=== PATIENT | female | born 1955 | race Caucasian/White ===

== ENCOUNTER 2018-03-31 16:03 | Outpatient (REF) | payer OTHER, SELFPAY ==
--- NOTE | 2018-03-31 15:40 | PAPFT_PTH ---
PATIENT: Irasema Kurtz LOC: [facility] U#:[id number] AGE/SX: 62/F ROOM: RE03/31/[address]: DANIE Bolaños : 1955 BED: DIS: 03/31/2018 SPEC #: [id number] RECD: 03/31/18 16:48 STATUS: JAILENE REQ #: [id number] CRISTOFER: 03/31/18 15:[address]: Trudi Merino DEPT: [facility] Cytology RECD BY: Michaela Rodgers ENTERED: 03/31/18 16:48 SP TYPE: PAPFT OTHR DR: Braydon He Tissues: 1 - CX/ENDOCX FOR PAP SMEARS Procedures: PAP THIN PREP/UVM Screening HPV DNA PROBE Comments: [id number]
== END 2018-03-31 16:23 ==
LOC: LBN 16:03
PROVIDERS: PCP Internal Medicine; Visit Provider Nurse Practitioner Family
DX: Z12.4 Encounter for screening for malignant neoplasm of cervix (principal); Z11.51 Encounter for screening for human papillomavirus (HPV)
CPT/HCPCS: 88142; 87624

== ENCOUNTER 2019-08-01 01:40 | Outpatient (CLI) | payer OTHER, SELFPAY ==
--- NOTE | 2019-08-01 08:30 | DI.MAMMO_ITS ---
EXAM: MAMMO SCREENING CLINICAL HISTORY: screening TECHNIQUE: Mammograms were interpreted according to the usual protocol including computer analysis w [employer] CAD system, tomosynthesis and C-view imaging. COMPARISON: 2009 through 2015 FINDINGS: The breasts are composed of scattered fibroglandular densities, Breast Density category B. No suspicious masses or suspicious microcalcifications are seen. No skin thickening or abnormal axillary lymph nodes are seen. There has been no significant change from prior exams. IMPRESSION: BIRADS Category 1, negative mammogram. Yearly screening mammography is recommended.
== END 2019-08-01 02:00 ==
PROVIDERS: PCP Family Medicine; Visit Provider Nurse Practitioner Family
DX: Z12.31 Encounter for screening mammogram for malignant neoplasm of breast (principal)
CPT/HCPCS: 77063; 77067

== ENCOUNTER 2019-08-27 09:19 | Emergency (ER) | payer SELFPAY | END 2019-08-27 09:42 | LOC: ER 09:32 | PROVIDERS: PCP Family Medicine | DX: Z53.21 Procedure and treatment not carried out due to patient leaving prior to being seen by health care provider (principal) ==

== ENCOUNTER 2020-06-10 09:46 | Emergency (ER) | payer OTHER, SELFPAY ==
[2020-06-10 09:49] VITALS: BP 158/96; PULSE 78; RESP 17; TEMP 36.7; O2SAT 99
--- NOTE | 2020-06-10 09:55 | ED.GENADUL_ITS ---
Discharge Plan Disposition Patient Disposition: HOME Condition: Stable Discharge Details Clinical Impression: Closed fracture of proximal end of right humerus, Right rib fracture Primary Care Provider: Alma Delia Pérez ED Provider: Fiorella Jennings Home Meds and New Rx's Prescriptions: New oxycodone 5 mg tablet 5 mg PO Q6H PRN (Reason: pain) Qty: 10 RF: 0 Continued ibuprofen 200 MG capsule 200 mg PO DAILY PRN PRNRF: 0 Vitamin C 100 MG tablet 500 mg PO BID RF: 0 vitamin B complex 1 EACH capsule 1 ea PO DAILY RF: 0 Fish Oil 500 MG capsule 1,000 mg PO BID RF: 0 Super Misael-Mag 1 EACH tablet 1 ea PO BID RF: 0 Glucosamine-Chondroitin Complx 1 EACH tablet 1,500 mg PO BID RF: 0 Carditone 1 tab PO BID RF: 0 vitamin E 400 UNIT capsule 400 unit PO DAILY RF: 0 Vitamin B6 1 tab PO DAILY RF: 0 Discharge Instructions Instructions: Arm Fracture in Adults (ED), Rib Fracture (ED) Additional Instructions: Rest, ice, and elevate the affected area as much as possible. Take 500 mg of Tylenol every 4 hours and 600 mg of ibuprofen every 6 hours as needed and directed for pain. Take the oxycodone as needed and directed for pain not relieved with Tylenol or Motrin. Keep your right arm in the sling until follow-up with orthopedics. Call the orthopedics office today to schedule a follow-up appointment for reevaluation. Follow-up with your primary care doctor in 1 week. Return to the emergency department with any worsening or new concerning symptoms. Stand Alone Forms: Work Release Referrals: Eddi June MD [ [facility] STAFF PHYSICIAN] - Discharge Data Discharge Date/Time-TO BE ENTERED AT DEPARTURE: 06/10/20 12:06 Discharge Physician: Fiorella Jennings Medical Decision Making 64-year-old female presents with right upper arm and right lateral rib pain after slip and fall on ice just prior to arrival. She has some pain with range of motion and tenderness to the right humerus and right inferior anterior lateral ribs. There is no deformity, crepitus. Suspect contusion, but also consider fracture. Will obtain a right humerus and rib and chest x-ray. X-rays reviewed and noted proximal comminuted right proximal humerus fracture and a possible right sixth rib fracture. Patient feels comfortable going home. We will send with incentive spirometer. Sling placed. Patient placed on orthopedic follow-up list. We will send with oxycodone for breakthrough pain. Usual and customary return precautions given prior to discharge. Medical Records Medical records reviewed: Yes I reviewed the patient's medical records. Imaging Data Radiologic Study: Radiologist's impression: XR HUMERUS RT CLINICAL HISTORY: s/p fall, r/o acute fx. TECHNIQUE: 2D digital imaging was performed. COMPARISON: No exams were available for comparison FINDINGS: BONES: There is a nondisplaced fracture involving the lateral aspect of the proximal humerus. It appears comminuted. It begins superior to the greater tuberosity and extends inferiorly into the proximal metaphysis. No bony destructive lesion is seen. Visualized portion of elbow and shoulder joints are unremarkable. There is a question of a nondisplaced fracture involving the anterolateral aspect of the right 6th rib. SOFT TISSUE: Normal. IMPRESSION: 1. Nondisplaced comminuted fracture of the proximal right humerus. 2. Question of a nondisplaced fracture involving the anterolateral aspect of the right 6th rib. XR RIBS RT W PA LAT CHEST CLINICAL HISTORY: s/p fall, r/o fx inferior anterolateral ribs TECHNIQUE: 2D digital imaging was performed. COMPARISON: No exams were available for comparison FINDINGS: MEDIASTINUM: Normal. HEART: Normal. PULMONARY VASCULATURE: Normal. LUNGS: Clear. PLEURAL SPACE: No pleural effusion or pneumothorax. BONE:Normal. RIGHT RIBS: No displaced rib fractures identified. However, on the x-ray of the right humerus there appears to be a nondisplaced fracture of the right 6th rib. There is a nondisplaced fracture of the proximal right humerus as described on the x-ray of the humerus. OTHER FINDINGS:Densities are seen in the right upper quadrant of the abdomen suspicious for cholelithiasis. IMPRESSION: 1. No acute pulmonary findings. 2. Nondisplaced proximal right humeral fracture. 3. On the right humeral x-ray series, there is a question of a nondisplaced right 6th rib fracture. HPI General Mode of arrival: ambulatory . Date/Time Provider Initiated Documentation: 06/10/20 09:55 . Limitations to Documentation: no limitations . Information obtained by: patient . HPI Narrative: Patient is a 64-year-old female presents with right upper arm and right rib pain after slip and fall on ice prior to arrival. Patient states she was walking when she slipped on ice landing on her right arm and ribs. She initially did not have any complaints that as time went on she developed pain in her upper arm and right anterior lower ribs. She admits to pain with movement and deep breaths. She denies head injury, headache, LOC, vomiting, neck pain, back pain, difficulty breathing, abdominal pain, neck or back pain. She took 400 mg of ibuprofen prior to arrival. Related Data Home Medications Medication Instructions Recorded Confirmed Carditone 1 tab PO BID 01/03/15 05/09/18 Fish Oil 1,000 mg PO BID 01/03/15 06/10/20 Glucosamine-Chondroitin Complx 1,500 mg PO BID 01/03/15 06/10/20 Super Misael-Mag 1 ea PO BID 01/03/15 06/10/20 Vitamin C 500 mg PO BID 01/03/15 06/10/20 ibuprofen 200 mg PO DAILY PRN PRN 01/03/15 06/10/20 vitamin B complex 1 ea PO DAILY 01/03/15 06/10/20 vitamin E 400 unit PO DAILY 08/05/15 06/10/20 Vitamin B6 1 tab PO DAILY 08/24/16 05/09/18 oxycodone 5 mg PO Q6H PRN #10 tab 06/10/20 Previous Rx's Medication Instructions Recorded oxycodone 5 mg PO Q6H PRN #10 tab 06/10/20 Allergies Allergy/AdvReac Type Severity Reaction Status Date / Time No Known Drug Allergies Allergy Unverified 06/10/20 09:52 General Stated Complaint: Orthopedic KRISTOFER: 4 Review of Systems All systems reviewed & are unremarkable except as noted in HPI and below Constitutional Constitutional: Reports as per HPI, Denies chills and Denies fever(s) Eyes Eyes: Denies blurry vision ENT Ears, Nose, Mouth, and Throat: Denies dizziness, Denies sore throat and Denies throat swelling Cardiovascular Cardiovascular: Denies chest pain and Denies dyspnea Respiratory Respiratory: Denies cough and Denies dyspnea Gastrointestinal Gastrointestinal: Denies abdominal pain, Denies diarrhea and Denies vomiting Genitourinary Genitourinary: Denies hematuria and Denies dysuria Musculoskeletal Musculoskeletal: Denies back pain and Denies numbness Integumentary/Breasts Skin/Breast: Denies lesions and Denies rash Neurologic Neurologic: Denies dizziness, Denies localized weakness and Denies numbness Allergic/Immunologic Allergic/Immunologic: Denies throat swelling [facility] Medical History (Updated 06/10/20 @ 11:48 by Fiorella Jennings DO) Hearing loss of both ears (01/20/15) HTN (hypertension) Osteoarthritis (01/20/15) Family History Mother Heart disease Myocardial infarction at age 75 Father Emphysema of lung Heart disease Myocardial infarction at age 68 Brother No problems noted. Social History (Updated 05/09/18 @ 11:52 by Taylor Nicholas MD) Smoking/Tobacco Use Status: Never Smoking risk assessment performed?: Yes Alcohol Intake: current Alcohol Intake frequency: holidays/special occasions only Drug use: Never Substance use type: does not use Exam Const General: cooperative, healthy appearing and no acute distress HENMT Head: normal to inspection Face and sinus: normal facial exam Eyes General: appearance normal, both eyes and all related structures EOM: EOM intact bilaterally Neck Neck: normal visual inspection and No submandibular swelling Lymphatic: no lymphadenopathy noted Chest Chest: normal inspection of the chest Chest/axillae images: 1. Tenderness to palpation to right anterior and inferior lateral ribs. No crepitus, ecchymosis, edema, erythema or step-off noted. Resp Effort & Inspection: normal respiratory effort and able to speak in complete sentences Auscultation: clear to auscultation bilaterally Cardio Rate: regular rate Rhythm: regular rhythm GI Inspection: normal to inspection Palpation: soft, not firm, not rigid and nontender Auscultation: normal bowel sounds Back/Spine/Pelvis Cervical Spine: cervical ROM normal and No cervical spinal tenderness Thoracic/Lumbar Spine: thoracic and lumbar spine normal to inspection, No thor acic spinal tenderness and No lumbar spinal tenderness Pelvis: no pain with anterior-posterior compression Skin General skin exam: no rashes or lesions noted Neuro General: patient alert, patient awake and patient oriented x3 Cognition: normal cognition Speech: speech normal Motor: muscle tone normal throughout Sensory Exam: no sensory deficits noted Extrem General: normal to inspection, full ROM, capillary refill normal, no calf tenderness bilaterally and no edema Shoulder/upper arm images: 1. Some tenderness to palpation to right proximal humerus. No deformity, ecchymosis, edema, erythema. Some pain with range of motion, specifically abduction. Hand/finger images: 1. 1 to 2 mm superficial abrasion. No edema, ecchymosis, deformity. No pain with palpation or range of motion. Psych Appearance: grossly normal Mental Status: mental status grossly normal Speech and Movement: speech and movement normal Affect: normal affect Course Vital Signs Vital signs: Vital Signs Temperature 98.1 F 06/10/20 09:49 Pulse 78 06/10/20 09:49 Respiratory Rate 17 06/10/20 09:49 Blood Pressure 158/96 H 06/10/20 09:49 Pulse Oximetry 99 06/10/20 09:49 Temperature 98.1 F 06/10/20 09:49 Temperature Source Temporal Artery Scan 06/10/20 09:49 Pulse 78 06/10/20 09:49 Respiratory Rate 17 06/10/20 09:49 Respiratory Effort Non-Labored 06/10/20 09:53 Blood Pressure 158/96 H 06/10/20 09:49 Pulse Oximetry 99 06/10/20 09:49 Oxygen Delivery Method Room Air 06/10/20 09:49 Oxygen Flow Rate 0 06/10/20 09:49 Pain Level 7 06/10/20 09:49 Procedures Orthopedic Splinting/Casting Injury #1: Side: right Upper Extremity Injury Location: upper arm Upper Extremity Immobilizer: sling/shoulder immobilizer
--- OUTSIDE RECORDS SUMMARY | 2020-06-10 10:42 | XMS_ITS ---
:1955 External Reference #:[id number] Author Care Team Providers Name Role Phone Knights Primary Care Provider Unavailable Allergies Code Code System Name Reaction Severity Status Onset NKDA ? Medications Name Status Start Date Stop Date ? ? B Complex Active ? Not available 1 cap/2xday Cardio-VH Active ? Not available Magnesium (as magnesium amino acid aristides ate) 20 mg Potassium (as potassium amino acid chelate) 20 mg Rauwolfia extract 15 mg, 305 mg (Passion flower, hawthorn simpson extract, lemon balm leaf, astragalus root, skullcap herb, eucommia bark extr act, coleus forskohlii extract, garlic, arjuna extract, fo-ti extract, astragalus extract.) 1 cap with carditone evening dose Carditone Active ? Not available Magnesium (as aspartate) 200 mg Proprie tary Blend (Zaida centifolia Boerhaavia diffusa, Coral powder) 350 mg Convolvulus pluricaulis 100 mg Terminalia arjuna 100 mg Tribulus terrestris 100 mg Rauwolfia serpentine 50 mg Zaida vinca 25 mg 1cap Lipotrienols RYR Active ? Not available Red yeast extract, lipotrienol blend 1 cap 2xday magnesium Active ? Not available Mg Taurate 1 at lunch 1 at dinner/bedtime Vitamin B6 100 mg tablet Active ? Not steve ilable Take by oral route. Vitamin D3 Active ? Not available 3000iu/day Problems Name Status Onset Date Source ? Impacted Cerumen Active 08/15/2018 ? Essential Hypertension Active 08/15/2018 ? Dietary Management Surveillance Active 08/15/2018 ? Hyperlipidemia Active 09/12/2018 ? Procedures None recorded. Results Lab Results Date Name Specimen Result Interpretation Description Value Range Status Address ? 08/31/2018 CMP, serum ? Glucose 92 <100 [facility] Serum or mg/dL mg/dL Diagnost ics: Plasma [address] [place] ? ? serum ? Bun 17 7-25 [facility] mg/dL mg/dL Diagnostic s: [address] [place] ? ? serum ? Creatinine 0.83 0.70-1. [facility] mg/dL 20 Diagnostic s: mg/dL [address] [place], [place] ? ? serum ? BUN / 20.5 6.0-21. [facility] Creatinine ratio 0 ratio Diagn ostics: Ratio [address] [place] ? ? serum ? eGFR 88 >60 Final [facility] [place] mL/min/ mL/min/ Diagno stics: 1.73m2 1.73m2 [address] [place] ? ? serum ? eGFR 76 >60 [facility] Non- mL/min/ mL/min/ [facility]: [place] 1.73m2 1.73m2 [address] [place], [place] ? ? serum ? Sodium 140 135-145 [facility] mmol/L mmol/L Diagnostic s: [address] [place] ? ? serum ? Potassium 4.0 3.5-5.1 [facility] mmol/L mmol/L Diagnostic s: [address] [place] ? ? serum ? Chloride 102 98-107 [facility] mmol/L mmol/L Diagnostic s: [address] [place] ? ? serum ? Co2 30 21-31 [facility] mmol/L mmol/L Diagnostic s: [address] [place] ? ? serum ? Anion Gap 8 mEq/L 5-15 [facility] mEq/L Diagnostic s: [address] [place] ? ? serum ? Calcium 9.6 8.6-10. [facility] mg/dL 3 mg/dL Diagnosti cs: [address] [place], [place] ? ? serum ? Total 6.6 6.4-8.9 [facility] Protein g/dL g/dL Diagnosti cs: [address] [place], [place] ? ? serum ? Albumin 4.3 3.5-5.7 [facility] g/dL g/dL Diagnostic s: [address] [place] ? ? serum ? Globulin 2.3 1.9-3.5 [facility] g/dL g/dL Diagnostic s: [address] [place], [place] ? ? serum ? Albumin / 1.9 0.8-2.0 [facility] Globulin ratio ratio Diagnost ics: Ratio [address] [place], [place] ? ? serum ? Tbili 0.5 0.1-1.5 [facility] mg/dL mg/dL Diagnostic s: [address] [place], [place] ? ? serum Low Alk. 41 IU/L 46-118 [facility] Phosphatase IU/L Diagn ostics: [address] [place], [place] ? ? serum ? Ast 17 IU/L 13-39 [facility] IU/L Diagnostic s: [address] [place], [place] ? ? serum ? Alt 11 IU/L 7-52 [facility] IU/L Diagnostic s: [address] [place], [place] 08/31/2018 Lipid serum High Chol 221 <200 [facility] Panel, mg/dL mg/dL Diagnostic s: Serum [address] [place], [place] ? ? serum ? Trig 69 <149 [facility] mg/dL mg/dL Diagnostic s: [address] [place], [place] ? ? serum High Ldl 149.5 <99.0 [facility] mg/dL mg/dL Diagnostic s: [address] [place], [place] ? ? serum ? Hdl 55 >39 [facility] mg/dL mg/dL Diagnostic s: [address] [place], [place] ? ? serum ? LDL/HDL 2.7 ? [facility] ratio Diagnostic s: [address] [place], [place] ? ? serum ? Trig/hdl 1.3 <2.0 [facility] ratio ratio Diagnostic s: [address] [place], [place] ? ? serum ? Chol/hdl 4.0 ? [facility] ratio Diagnostic s: [address], [place] ? ? serum ? Vldl 13.8 <30.0 [facility] mg/dL mg/dL Diagnostic s: [address], [place] 08/31/2018 Magnesium RBCs ? Magnesium, 2.0 1.5-3.1 Angelique [facility] , RBC RBCs mmol/L mmol/L Diagnostic s: [address], [place] Past Encounters 08/22/2019 Essential Hypertension; Hyperlipidemia; Vitamin D Deficiency Araceli Ca, [place]: [address] [facility], [place] [address], Ph. [phone] 05/16/2019 Essential Hypertension; Dietary Managevt nt Surveillance; Hyperlipidemia Araceli Ca, [place]: [address] [place] [address], Ph. [phone] 02/06/2019 Hyperlipidemia; Essential Hypertension; Vitamin D Deficiency; Dietary Management Surveillance Araceli Ca, [place]: [address] [place] [address], Ph. [phone] Social History Tobacco Smoking Status Never Smoker Vaccine List None recorded. Plan of Care Patient Instructions 1. Eat more green leafy- veggies- 2. Maybe smoothies add spinach- 3. Lipid draw and CMp 4. Vit D levels- ? you were 37 in [facility] 2018- retest to see what level you are coming out of winter Let me know where to send Lab orders 1. Vitamin D emulsified either drop or caps 3000iu /day 2. lipotrienol ryrs 1 cap 2xday 3, Carditone 2/day 4. Cardio-vh 2/day 5. Continue with B complex you have and bring in next time 1 cap /day? 6. Ubiquinol Coq10 1 cap 2xday 100mg 2xd ay ?you are taking another? 7. Continue to monitor BP with Diet and bring supplements in brown bag next visit 1. Eat more grains and greens- 2. pick 2-3 days that are plant based pr otein with lots of greens 3. contine with lipotrienols unless bloo d work says otherwise 4. For 1 week add extra cardio vh at [facility] ht- 2 cardio vh and 1 carditione at night report BP 5. Make appt to return in 3 months- get bloodwork for lipid, hepatic, week prior to appt Reminders Provider Appointments None recorded. ? ? Lab None recorded. ? ? Referral None recorded. ? ? Procedures None recorded. ? ? Surgeries None recorded. ? ? Imaging None recorded. ? ? Vitals 08/22/2019 12:15PM ESTABLISHED PATIENT 47 Weight Blood Pressure 123 lbs 16 oz (1) 152/92 mm[Hg] (2) 161/86 mm[Hg] 05/16/2019 11:30AM ESTABLISHED PATIENT 47 Weight Blood Pressure 126 lbs 140/86 mm[Hg] 02/06/2019 08:00AM ESTABLISHED PATIENT 47 Weight Blood Pressure 127 lbs 16 oz 138/82 mm[Hg] 11/14/2018 08:45AM ESTABLISHED PATIENT 47 Weight Blood Pressure 134 lbs 6.4 oz 140/80 mm[Hg] 10/17/2018 08:45AM ESTABLISHED PATIENT 30 Weight Blood Pressure 135 lbs 6.4 oz 136/90 mm[Hg] 09/21/2018 08:45AM ESTABLISHED PATIENT 30 Blood Pressure 156/94 mm[Hg] 09/07/2018 08:30AM NEW PATIENT 30 Blood Pressure 150/86 mm[Hg] 08/15/2018 08:00AM ESTABLISHED PATIENT 47 Weight Blood Pressure 139 lbs 16 oz 150/96 mm[Hg] 11/17/2016 01:00PM ESTABLISHED PATIENT 30 Height Weight BMI Blood Pressure 5 ft 2 in 143 lbs 16 oz 26.3 kg/m2 140/80 mm[Hg] 11/04/2016 12:30PM ESTABLISHED PATIENT 30 Height Blood Pressure 5 ft 2 in 150/90 mm[Hg] 10/20/2016 09:00AM NEW PATIENT 90 Height Weight BMI Blood Pressure 5 ft 2 in 144 lbs 16 oz 26.5 kg/m2 (1) 150/90 mm[H g] (2) 152/96 mm[Hg ]
--- NOTE | 2020-06-10 11:09 | DI.RAD_ITS ---
EXAM: XR HUMERUS RT CLINICAL HISTORY: s/p fall, r/o acute fx. TECHNIQUE: 2D digital imaging was performed. COMPARISON: No exams were available for comparison FINDINGS: BONES: There is a nondisplaced fracture involving the lateral aspect of the proximal humerus. It dory ears comminuted. It begins superior to the greater tuberosity and extends inferiorly into the proxim al metaphysis. No bony destructive lesion is seen. Visualized portion of elbow and shoulder joints a re unremarkable. There is a question of a nondisplaced fracture involving the anterolateral aspect o f the right 6th rib. SOFT TISSUE: Normal. IMPRESSION: 1. Nondisplaced comminuted fracture of the proximal right humerus. 2. Question of a nondisplaced fracture involving the anterolateral aspect of the right 6th rib. DATA REPOSITORY: RADIATION DOSE DELIVERED:
--- NOTE | 2020-06-10 11:10 | DI.RAD_ITS ---
EXAM: XR RIBS RT W PA LAT CHEST CLINICAL HISTORY: s/p fall, r/o fx inferior anterolateral ribs TECHNIQUE: 2D digital imaging was performed. COMPARISON: No exams were available for comparison FINDINGS: MEDIASTINUM: Normal. HEART: Normal. PULMONARY VASCULATURE: Normal. LUNGS: Clear. PLEURAL SPACE: No pleural effusion or pneumothorax. BONE:Normal. RIGHT RIBS: No displaced rib fractures identified. However, on the x-ray of the right humerus there appears to be a nondisplaced fracture of the right 6th rib. There is a nondisplaced fracture of the proximal right humerus as described on the x-ray of the humerus. OTHER FINDINGS:Densities are seen in the right upper quadrant of the abdomen suspicious for cholelith iasis. IMPRESSION: 1. No acute pulmonary findings. 2. Nondisplaced proximal right humeral fracture. 3. On the right humeral x-ray series, there is a question of a nondisplaced right 6th rib fracture. DATA REPOSITORY: RADIATION DOSE DELIVERED:
== END 2020-06-10 12:06 | disposition home or self-care (01) ==
PROVIDERS: Emergency Provider Physician Assistant; PCP Family Medicine
DX: S22.31XA Fracture of one rib, right side, initial encounter for closed fracture (principal); S42.294A Other nondisplaced fracture of upper end of right humerus, initial encounter for closed fracture; W00.0XXA Fall on same level due to ice and snow, initial encounter; Y99.0 Civilian activity done for income or pay; I10 Essential (primary) hypertension
CPT/HCPCS: 23600; 99281; 71046; 71100; 73060

== ENCOUNTER 2020-06-25 09:11 | Outpatient (CLI) | payer OTHER, SELFPAY ==
--- NOTE | 2020-06-25 09:00 | DI.RAD_ITS ---
EXAM: XR SHOULDER RT COMPLETE 2+V CLINICAL HISTORY: R prox humerus fx. TECHNIQUE: 2D digital imaging was performed. COMPARISON: CR XR HUMERUS RT from 06/10/2020 FINDINGS: BONES: No change in the alignment of the proximal right humeral fracture. No new fracture or disloca tion. No bony destructive lesion is seen. JOINTS: Degenerative changes of the acromioclavicular joint. SOFT TISSUE: Normal. IMPRESSION: Stable proximal right humeral fracture. DATA REPOSITORY: RADIATION DOSE DELIVERED:
== END 2020-06-25 09:31 ==
PROVIDERS: PCP Family Medicine; Visit Provider Physician Assistant
DX: S42.291A Other displaced fracture of upper end of right humerus, initial encounter for closed fracture (principal); M19.011 Primary osteoarthritis, right shoulder
CPT/HCPCS: 73030

== ENCOUNTER 2020-07-24 13:36 | Outpatient (CLI) | payer OTHER, SELFPAY ==
--- NOTE | 2020-07-24 11:45 | DI.RAD_ITS ---
EXAM: XR SHOULDER RT COMPLETE 2+V CLINICAL HISTORY: right proximal humerus fracture. TECHNIQUE: 2D digital imaging was performed. COMPARISON: CR XR SHOULDER RT COMPLETE 2+V from 06/25/2020 FINDINGS: There is continued stable appearance of the humeral head-neck fracture which also involves the greate r tuberosity. Fracture lines are still evident. No further displacement. Subacromial space is not diminished. Glenohumeral joint is not dislocated. IMPRESSION: Continued stable appearance on this two view study. DATA REPOSITORY: RADIATION DOSE DELIVERED:
== END 2020-07-24 13:37 | disposition home or self-care (01) ==
LOC: DIORS 13:37
PROVIDERS: PCP Family Medicine; Referring Provider Family Medicine; Visit Provider Physician Assistant
DX: S42.294D Other nondisplaced fracture of upper end of right humerus, subsequent encounter for fracture with routine healing (principal)
CPT/HCPCS: 73030

== ENCOUNTER 2020-09-04 11:05 | Outpatient (CLI) | payer OTHER, SELFPAY ==
--- NOTE | 2020-09-04 10:45 | DI.RAD_ITS ---
EXAM: XR SHOULDER RT COMPLETE 2+V CLINICAL HISTORY: F/U FRACTURE. TECHNIQUE: 2D digital imaging was performed. COMPARISON: CR XR SHOULDER RT COMPLETE 2+V from 07/24/2020 FINDINGS: There has been some healing at the fracture site. No significant displacement. No calcifications in the subacromial space. Glenohumeral joint appears unremarkable. IMPRESSION: DATA REPOSITORY: RADIATION DOSE DELIVERED:
== END 2020-09-04 11:06 | disposition home or self-care (01) ==
LOC: DIORS 11:49
PROVIDERS: PCP Family Medicine; Referring Provider Family Medicine; Visit Provider Student in an Organized Health Care Education/Training Program
DX: S42.291D Other displaced fracture of upper end of right humerus, subsequent encounter for fracture with routine healing (principal)
CPT/HCPCS: 73030

== ENCOUNTER 2020-09-30 15:33 | Outpatient (REF) | payer OTHER, SELFPAY ==
--- NOTE | 2020-09-30 15:00 | PAPFT_PTH ---
PATIENT: Irasema Kurtz LOC: [facility] U#:[id number] AGE/SX: 64/F ROOM: RE09/30/[address]: DANIE Bolaños : 1955 BED: DIS: 09/30/2020 SPEC #: [id number] RECD: 09/30/20 18:00 STATUS: JAILENE REQ #: [id number] CRISTOFER: 09/30/20 15:[address]: Trudi Merino DEPT: [facility] Cytology RECD BY: Michaela Rodgers ENTERED: 09/30/20 18:00 SP TYPE: PAPFT OTHR DR: Alma Delia Pérez Tissues: 1 - CX/ENDOCX FOR PAP SMEARS Procedures: PAP THIN PREP/UVM Screening Comments: [id number] (UNSATISFACTORY FOR EVALUATION)
== END 2020-09-30 15:34 | disposition home or self-care (01) ==
LOC: LBN 15:33
PROVIDERS: PCP Family Medicine; Visit Provider Nurse Practitioner Family
DX: Z12.4 Encounter for screening for malignant neoplasm of cervix (principal); R87.615 Unsatisfactory cytologic smear of cervix
CPT/HCPCS: 88142

== ENCOUNTER 2021-03-04 03:36 | Outpatient (CLI) | payer OTHER, SELFPAY ==
[2021-03-04 09:56] LABS: ALT 34 U/L (14-59); AST 20 U/L (15-37); Albumin 4.3 g/dL (3.4-5.0); Alkaline Phosphatase 52 U/L (46-116); Anion Gap 9.1 mmol/L (3-11); BUN 14 mg/dL (7-18); Bilirubin, Total 0.6 mg/dL (0.2-1.0); CO2 28.9 mmol/L (21.0-32.0); CREATININE 0.8 mg/dL (0.55-1.02); Calcium 9.3 mg/dL (8.5-10.1); Calculated LDL 146 mg/dL (<100); Chloride 106 mmol/L (98-107); Cholesterol 233 mg/dL (<200); Glucose 98 mg/dL (74-106); HDL Cholesterol 77 mg/dL (40-60); Lipase 121 U/L (73-393); Sodium 144 mmol/L (136-145); Total Protein 7.4 g/dL (6.4-8.2); Triglyceride 52 mg/dL (<150)
[2021-03-04 10:21] LABS: Amylase 67 U/L (25-115)
[2021-03-05 00:51] LABS: Vitamin D 25 Total 27.7 ng/mL (30-100)
== END 2021-03-04 03:37 | disposition home or self-care (01) ==
LOC: LBO 03:36
PROVIDERS: PCP Family Medicine; Visit Provider Naturopath
DX: R10.13 Epigastric pain (principal); E78.5 Hyperlipidemia, unspecified; E55.9 Vitamin D deficiency, unspecified
CPT/HCPCS: 36415; 80053; 80061; 82306; 83690; 82150

== ENCOUNTER 2021-07-07 00:18 | Outpatient (CLI) | payer OTHER, SELFPAY ==
--- NOTE | 2021-07-07 07:30 | DI.US_ITS ---
Exam(s) US AXILLA LT EXAM: US AXILLA LT CLINICAL HISTORY: Previous US neg,LT AXILLARY SWELLING,M79.89 TECHNIQUE: Ultrasound left axilla performed using standard protocol. COMPARISON: No exams were available for comparison FINDINGS: Targeted area of the left axilla was evaluated sonographically. No solid or cystic masses, hypoechoi c foci, areas of abnormal shadowing, or areas of skin thickening. IMPRESSION: No cystic or solid mass is seen sonographically in the left axillary area of palpable concern. DATA REPOSITORY:
--- NOTE | 2021-07-07 10:30 | DI.MAMMO_ITS ---
Exam(s) MAMMO SCREENING EXAM: MAMMO SCREENING CLINICAL HISTORY: screening,Z12.39 TECHNIQUE: Bilateral full field digital CC and MLO mammographic images were obtained with 3D tomosyn thesis and utilizing computer aided detection (CAD). COMPARISON: Available for comparison. FINDINGS: Masses/Architectural Distortion: None seen. Microcalcifications: No suspicious pleomorphic-type are seen. Skin Thickening/Nipple Retraction: None. IMPRESSION: 1. No significant interval change with no specific features of malignancy noted. 2. Unless there is more urgent need, screening mammography is recommended, as per [employer] guidelines. BI-RADS Category 1 - Negative Breast Density - Category B - Scattered areas of fibroglandular density Breast density category C or D implies that the patient has dense breast tissue. Dense breast tissue is very common and is not abnormal but dense breast tissue can make it harder to find cancer on a ma mmogram. Also, dense breast tissue may increase their breast cancer risk. This information about the result of the mammogram report was provided to the patient to raise their awareness. Use this report when you speak with the patient about their risks for breast cancer, which includes their family hist ory. At that time, you may recommend for more screening tests (Ultrasound or MRI) as they might be us eful based on their risk. A negative radiographic report should not delay biopsy if a dominant or clinically suspicious mass is present. Up to ten percent of cancers are not identified on mammography. A negative report may reinforce clinical impression. Adenosis and dense breasts may obscure an underlying neoplasm. False positive reports average 6 to 10%. Patient will receive a letter notifying them of these results.
== END 2021-07-07 00:38 ==
PROVIDERS: PCP Family Medicine; Visit Provider Surgery
DX: Z12.31 Encounter for screening mammogram for malignant neoplasm of breast (principal); M79.89 Other specified soft tissue disorders
CPT/HCPCS: 76642; 77063; 77067

== ENCOUNTER 2021-11-10 15:46 | Outpatient (REF) | payer OTHER, SELFPAY ==
--- NOTE | 2021-11-10 15:00 | PAPFT_PTH ---
PATIENT: Irasema Kurtz LOC: [facility] U#:[id number] AGE/SX: 66/F ROOM: RE11/10/[address]: DANIE Bolaños : 1955 BED: DIS: 11/10/2021 SPEC #: [id number] RECD: 11/10/21 18:06 STATUS: CHRISTOJohn REQ #: [id number] CRISTOFER: 11/10/21 15:[address]: Trudi Merino DEPT: [facility] Cytology RECD BY: Michaela Rodgers ENTERED: 11/10/21 18:07 SP TYPE: PAPFT OTHR DR: Alma Delia Pérez Tissues: 1 - CX/ENDOCX FOR PAP SMEARS Procedures: PAP THIN PREP/UVM Screening HPV DNA PROBE Comments: [id number]
== END 2021-11-10 15:47 | disposition home or self-care (01) ==
LOC: LBN 15:46
PROVIDERS: PCP Family Medicine; Visit Provider Nurse Practitioner Family
DX: Z12.4 Encounter for screening for malignant neoplasm of cervix (principal); Z11.51 Encounter for screening for human papillomavirus (HPV)
CPT/HCPCS: 88142; 87624

== ENCOUNTER 2022-10-20 13:29 | Emergency (ER) | payer OTHER, SELFPAY ==
[2022-10-20 13:34] VITALS: BP 151/90; PULSE 79; RESP 18; TEMP 36.6; O2SAT 97
--- NOTE | 2022-10-20 13:45 | ED.GENADUL_ITS ---
Discharge Plan Disposition Patient Disposition: Home Condition: Stable Discharge Details Clinical Impression: Fall, Wrist sprain Primary Care Provider: Alma Delia Pérez ED Provider: Enid Grant Home Meds and New Rx's Prescriptions: Continued benzonatate 100 mg capsule 100 mg PO TID PRN (Reason: cough) Qty: 14 0RF Patient Comments: not taking ibuprofen 200 MG capsule 200 mg PO DAILY PRN PRN Vitamin C 100 MG tablet 500 mg PO BID Patient Comments: 01/20/15- reports takes 500mg BID. NC vitamin B complex 1 EACH capsule 1 ea PO DAILY Fish Oil 500 MG capsule 1,000 mg PO BID Patient Comments: 01/20/15- states she is taking 1000mg/ BID Super Misael-Mag 1 EACH tablet 1 ea PO BID Glucosamine-Chondroitin Complx 1 EACH tablet 1,500 mg PO BID Patient Comments: 01/20/15-reports she takes 1,500mg BID. NC Carditone 1 tab PO BID Patient Comments: not taking vitamin E 400 UNIT capsule 400 unit PO DAILY Vitamin B6 1 tab PO DAILY Discharge Instructions Instructions: Fall Prevention (ED), Wrist Sprain (ED) Additional Instructions: No evidence of broken bones noted on the x-rays of her wrists. Do suspect sprain. Please keep the Rodo wrap's on as needed for comfort. Rest ice compression elevation. Please take Tylenol or Ibuprofen with food every 4-6 hours as needed for pain and swelling. Follow up with primary care provider in 3-5 days. Return to ED sooner if any worsening or concerns. Increase oral fluids. Referrals: Alma Delia Pérez [Primary Care Provider] - 1 week Medical Decision Making 66-year-old female presents to the ER status post mechanical fall which she jumped out of a truck. She landed onto her left side and bilateral outstretched arms to her hands. She is complaining of bilateral wrist pain. Denies hitting her head no loss of consciousness no neck or back pain. She did take 2 Advil prior to arrival. No other injuries or complaints at this time. She does have a past medical history of hypertension osteoarthritis. X-rays of wrist are unremarkable. Will order Rodo bandages and instructed on RICE procedures. Given Rodo wrap's bilaterally. This text was generated using [employer] system, please disregard any oddities of phrase or misspellings. HPI General Mode of arrival: ambulatory . Date/Time Provider Initiated Documentation: 10/20/22 13:40 . Limitations to Documentation: no limitations . Information obtained by: patient, family, RN notes reviewed and old records reviewed . HPI Narrative: 66-year-old female presents to the ER status post mechanical fall which she jumped out of a truck. She landed onto her left side and bilateral outstretched arms to her hands. She is complaining of bilateral wrist pain. Denies hitting her head no loss of consciousness no neck or back pain. She did take 2 Advil prior to arrival. No other injuries or complaints at this time. She does have a past medical history of hypertension osteoarthritis. Related Data Home Medications Medication Instructions Recorded Confirmed Carditone 1 tab PO BID 01/03/15 09/13/22 ascorbic acid (vitamin C) 100 mg 500 mg PO BID 01/03/15 10/20/22 tablet (Vitamin C) calcium carbonate-magnesium oxide 1 ea PO BID 01/03/15 10/20/22 333 mg-167 mg tablet (Super Misael-Mag) glucosamine 750 [id number]-[id number]-[id number] 1 1,500 mg PO BID 01/03/15 10/20/22 625 mg-D3 1,000 ylhd-Y-alh-Bosw tablet (Glucosamine-Chondroitin Complex) ibuprofen 200 mg capsule 200 mg PO DAILY PRN PRN 01/03/15 10/20/22 omega-3 fatty acids 500 mg capsule 1,000 mg PO BID 01/03/15 10/20/22 (Fish Oil) vitamin B complex 1 ea PO DAILY 01/03/15 10/20/22 vitamin E 268 mg (400 unit) capsule 400 unit PO DAILY 08/05/15 10/20/22 Vitamin B6 1 tab PO DAILY 08/24/16 10/20/22 benzonatate 100 mg capsule 100 mg PO TID PRN cough #14 caps 09/07/22 09/07/22 Previous Rx's Medication Instructions Recorded benzonatate 100 mg capsule 100 mg PO TID PRN cough #14 caps 09/07/22 Allergies Allergy/AdvReac Type Severity Reaction Status Date / Time No Known Drug Allergies Allergy Unverified 10/20/22 13:35 General Stated Complaint: Orthopedic KRISTOFER: 4 Review of Systems All systems reviewed & are unremarkable except as noted in HPI and below Musculoskeletal Musculoskeletal: Reports as per HPI and Reports arthralgias PFSH All Active Problems (Updated 10/20/22 @ 14:33 by Enid Grant NP) Fall (Acute) Wrist sprain (Acute) Closed fracture of proximal end of right humerus (Acute) Osteoarthritis (Acute 01/20/15) Hearing loss of both ears (Acute 01/20/15) HTN (hypertension) (Acute 01/20/15) Medical History (Updated 10/20/22 @ 14:33 by Enid Grant NP) HTN (hypertension) Family History Mother Heart disease Myocardial infarction at age 75 Father Emphysema of lung Heart disease Myocardial infarction at age 68 Brother No problems noted. Social History Smoking/Tobacco Use Status: Never Smoking risk assessment performed?: Yes Alcohol Intake: never Drug use: Never Substance use type: does not use Current gender identity: female Exam Narrative Exam Narrative: General: Well Developed, Awake and Alert, conversant. Skin: Warm and Dry HEENT: Head: No palpable deformities, Normocephalic Eyes: Pupils PERRLA, EOM's intact. No periorbital eccymosis or step off Ears: Canal patent. Tympanic membranes are clear . No nguyen's sign, no hemptympanum. Nose/Face: Atraumatic. Facial bones nontender to palpation and stable with manipulation. Mouth/Throat: No intraoral trauma. Teeth and mandible are intact. Neck: No midline tenderness, no step off, no deformity to palpation of C-spine. Trachea midline. Chest: No surface trauma. Nontender without crepitus or deformity. Lungs clear to ausculatation bilaterally. Heart: RRR, no rubs, murmurs or gallop. Abdomen: No abrasions, ecchymosis, or surface trauma. Nondistended. Nontender to palpation no guarding, rebound, or rigidity. Pelvis: Nontender to palpation and stable to compression. Femoral pulses strong and equal Extremities: no surface trauma. Sensation intact. Peripheral pulses intact and equal. Neuro: ANO x4, GCS 15, cranial nerves II through XII intact. Motor and sensory exam nonfocal. Reflexes are symmetric. Course Vital Signs Vital signs: Vital Signs Temperature 36.6 C 10/20/22 13:34 Pulse 79 10/20/22 13:34 Respiratory Rate 18 10/20/22 13:34 Blood Pressure 151/90 H 10/20/22 13:34 Pulse Oximetry 97 10/20/22 13:34 Temperature 36.6 C 10/20/22 13:34 Temperature Source Temporal Artery Scan 10/20/22 13:34 Pulse 79 10/20/22 13:34 Respiratory Rate 18 10/20/22 13:34 Respiratory Effort Normal, Non-Labored 10/20/22 13:35 Blood Pressure 151/90 H 10/20/22 13:34 Pulse Oximetry 97 10/20/22 13:34 Oxygen Delivery Method Room Air 10/20/22 13:34 Oxygen Flow Rate 0 10/20/22 13:34
--- NOTE | 2022-10-20 14:04 | DI.RAD_ITS ---
Exam(s) XR WRIST LT COMPLETE EXAM: XR WRIST LT COMPLETE CLINICAL HISTORY: Fall. TECHNIQUE: 2D digital imaging was performed. Three views. COMPARISON: No exams were available for comparison FINDINGS: BONES: No acute fracture is present. No bony destructive lesion is seen. JOINTS: The carpal bones are normally aligned. SOFT TISSUE: Normal. IMPRESSION: Unremarkable radiographs of the left wrist. DATA REPOSITORY: RADIATION DOSE DELIVERED:
--- NOTE | 2022-10-20 14:05 | DI.RAD_ITS ---
Exam(s) XR WRIST RT COMPLETE EXAM: XR WRIST RT COMPLETE CLINICAL HISTORY: Fall. TECHNIQUE: 2D digital imaging was performed. Three views. COMPARISON: CR XR WRIST LT COMPLETE from 10/20/2022 FINDINGS: BONES: No acute fracture is present. No bony destructive lesion is seen. JOINTS: The carpal bones are normally aligned. SOFT TISSUE: Normal. IMPRESSION: Unremarkable radiographs of the right wrist. DATA REPOSITORY: RADIATION DOSE DELIVERED:
[2022-10-20 14:55] VITALS: PULSE 80; RESP 18; O2SAT 98
== END 2022-10-20 14:56 | disposition home or self-care (01) ==
PROVIDERS: Emergency Provider Registered Nurse Emergency; PCP Family Medicine
DX: S63.502A Unspecified sprain of left wrist, initial encounter (principal); V89.9XXA Person injured in unspecified vehicle accident, initial encounter; S63.501A Unspecified sprain of right wrist, initial encounter
CPT/HCPCS: 99283; 73110

== ENCOUNTER 2023-03-25 02:17 | Outpatient (CLI) | payer MEDICARE, SELFPAY ==
[2023-03-25 07:33] LABS: Abs Immature Grans 0.01 10^3/uL (0.0-0.06); Absolute Basophil Count 0.04 10^3/uL (0.0-0.2); Absolute Eosinophil Count 0.12 10^3/uL (0.0-0.7); Absolute Lymphocyte Count 1.14 10^3/uL (1.2-3.4); Absolute Monocyte Count 0.33 10^3/uL (0.1-0.8); Absolute Neutrophil Count 2.36 10^3/uL (1.2-6.7); HCT 41.6 % (36.0-46.0); HGB 14.1 g/dL (11.2-15.7); Immature Grans % 0.3; Lymphocytes % 28.5; MCH 30.9 pg (27.0-33.0); MCHC 33.9 % (32.0-36.0); MCV 91 fL (80-95); MPV 9.1 fL (8.0-11.0); Monocytes % 8.3; Neutrophils % 58.9; Platelet Count 235 10^3/uL (130-400); RBC 4.57 10^6/uL (3.93-5.22)
[2023-03-25 08:02] LABS: ALT 24 U/L (14-59); AST 19 U/L (15-37); Alkaline Phosphatase 47 U/L (46-116); Anion Gap 8.5 mmol/L (3-11); BUN 10 mg/dL (7-18); Bilirubin, Total 0.6 mg/dL (0.2-1.0); CO2 29.5 mmol/L (21.0-32.0); CREATININE 0.8 mg/dL (0.55-1.02); Calcium 9.6 mg/dL (8.5-10.1); Calculated LDL 145 mg/dL (<100); Chloride 106 mmol/L (98-107); Cholesterol 226 mg/dL (<200); Estimated GFR 81.72 (mL/min/1.73m2); Glucose 108 mg/dL (74-106); HDL Cholesterol 65 mg/dL (40-60); Potassium 3.7 mmol/L (3.5-5.1); Sodium 144 mmol/L (136-145); Total Protein 7.5 g/dL (6.4-8.2); Triglyceride 82 mg/dL (<150)
[2023-03-25 08:30] LABS: Hemoglobin A1C 5.1 % (<5.7)
[2023-03-28 15:57] LABS: Apolipoprotein A1, S 164 mg/dL (>=140); Apolipoprotein B, S 107 mg/dL (See Comment); Apolipoprotein B/A 1 ratio 0.7 (See Comment)
== END 2023-03-25 02:18 | disposition home or self-care (01) ==
PROVIDERS: PCP Family Medicine; Visit Provider Naturopath
DX: E78.5 Hyperlipidemia, unspecified (principal); E55.9 Vitamin D deficiency, unspecified
CPT/HCPCS: 36415; 80053; 80061; 82172; 82306; 83036; 85025

== ENCOUNTER 2023-05-06 10:39 | Emergency (ER) | payer MEDICARE, SELFPAY ==
[2023-05-06] VITALS (13 sets, daily range): BP systolic 139–187; BP diastolic 85–98; PULSE 74–91; RESP 13–24; O2SAT 96–100
--- NOTE | 2023-05-06 10:30 | RT.EKG_ITS ---
APPROVED REPORT Exam: Resting ECG Reason for Exam: Dyspnea Patient Location: E HR:85 bpm ECG Measurements Heart Rate 85 AXIS SC 134 P 42 QRSd 95 QRS -19 QT 391 T 92 QTc 465 Conclusion Sinus rhythm normal axis LVH
--- NOTE | 2023-05-06 10:45 | DI.RAD_ITS ---
Exam(s) XR CHEST 2V PA LATERAL EXAM: XR CHEST 2V PA LATERAL CLINICAL HISTORY: SOB TECHNIQUE: 2D digital imaging was performed of the chest. Two images were obtained. PA and lateral views were obtained. COMPARISON: CR XR RIBS RT W PA LAT CHEST from 06/10/2020 FINDINGS: MEDIASTINUM: Normal. HEART: Normal. PULMONARY VASCULATURE: Normal. LUNGS: Clear. PLEURAL SPACE: No pleural effusion or pneumothorax. BONE:Within normal limits for the patient's age. OTHER FINDINGS:Normal. IMPRESSION: No acute pulmonary findings. DATA REPOSITORY: RADIATION DOSE DELIVERED:
--- NOTE | 2023-05-06 11:06 | W.ED.GENAD ---
Discharge Plan Disposition Patient Disposition: Home Condition: Good Discharge Details Clinical Impression: Heart palpitations Primary Care Provider: Alma Delia Pérez ED Provider: Virgil Foley Home Meds and New Rx's Prescriptions: No Action ibuprofen 200 MG capsule 200 mg PO DAILY PRN PRN Vitamin C 100 MG tablet 500 mg PO BID Patient Comments: 01/20/15- reports takes 500mg BID. NC vitamin B complex 1 EACH capsule 1 ea PO DAILY Fish Oil 500 MG capsule 1,000 mg PO BID Patient Comments: 01/20/15- states she is taking 1000mg/ BID Super Misael-Mag 1 EACH tablet 1 ea PO BID Glucosamine-Chondroitin Complx 1 EACH tablet 1,500 mg PO BID Patient Comments: 01/20/15-reports she takes 1,500mg BID. NC vitamin E 400 UNIT capsule 400 unit PO DAILY Vitamin B6 1 tab PO DAILY htm 180px Patient Comments: states taking instead of carditone per herbalist Discharge Instructions Additional Instructions: Follow-up to schedule your echo : Wear holter monitor as instructed return with worsening symptoms or chest pain keep blood pressure log and follow up with PCP Discharge Orders Other Ambulatory Orders: Holter Monitor (Routine) Timeframe: 1 Week Facility: [facility] - Location: Respiratory Therapy Ordered By: Virgil Foley Medical Decision Making Emergent evaluation of palpitations. Initial concerns include dysrhythmia, electrolyte derangement, thyroid dysfunction, side effect of herbal supplementation. Patient reports that she is not interested in taking standard pharmaceuticals. Initial EKG reveals a sinus rhythm. Plans for lab work, telemetry monitoring and x-ray. 1215: Lab work reviewed, mild hypokalemia at 3.3. An oral dose of medication was provided. Otherwise no significant derangement and no concerning abnormalities. Patient's blood pressure has returned to normal level. The patient will be discharged in good condition. I have ordered a Holter monitor. She reports that her primary provider has ordered an outpatient echo. Have given her the information to call and schedule this. At this time there is no emergent condition identified and the patient is stable for discharge and follow-up. Medical Records Medical records reviewed: Yes I reviewed the patient's medical records. Lab Data Lab results reviewed: Yes I reviewed the patient's lab results. ECG Data Attestation: I personally reviewed and interpreted this ECG (s) as follows: Interpretation: Sinus 85, normal axis, normal intervals, nonspecific ST depressions HPI General Date/Time Provider Initiated Documentation: 05/06/23 10:53. Limitations to Documentation: no limitations. Information obtained by: patient. HPI Narrative: 67-year-old female with past medical history of hypertension presents for evaluation of palpitations. She reports that this has been ongoing for a week. It comes and goes. Not associated with chest pain. Unclear exacerbating or relieving factors. Associated with some shortness of breath. 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 She thinks the new 1 is not working as well. She denies any headache, vision change, abdominal pain. Denies any smoking or drug use. Related Data Home Medications Medication Instructions Recorded Confirmed ascorbic acid (vitamin C) 100 mg 500 mg PO BID 01/03/15 05/06/23 tablet (Vitamin C) calcium carbonate-magnesium oxide 1 ea PO BID 01/03/15 05/06/23 333 mg-167 mg tablet (Super Misael-Mag) glucosamine 750 xy-oxbbke-oac 1 1,500 mg PO BID 01/03/15 05/06/23 625 mg-D3 1,000 cbrw-P-drm-Bosw tablet (Glucosamine-Chondroitin Complex) ibuprofen 200 mg capsule 200 mg PO DAILY PRN PRN 01/03/15 05/06/23 omega-3 fatty acids 500 mg capsule 1,000 mg PO BID 01/03/15 05/06/23 (Fish Oil) vitamin B complex 1 ea PO DAILY 01/03/15 05/06/23 vitamin E 268 mg (400 unit) capsule 400 unit PO DAILY 08/05/15 05/06/23 Vitamin B6 1 tab PO DAILY 08/24/16 05/06/23 htm 180px PO BID 05/06/23 Allergies Allergy/AdvReac Type Severity Reaction Status Date / Time No Known Drug Allergies Allergy Unverified 05/06/23 11:36 General Stated Complaint: Palpitatns KRISTOFER: 2 PFSH All Active Problems (Updated 05/06/23 @ 12:12 by Virgil Foley MD) Heart palpitations (Acute) Palpitations (Acute) Closed fracture of proximal end of right humerus (Acute) Osteoarthritis (Acute 01/20/15) Hearing loss of both ears (Acute 01/20/15) HTN (hypertension) (Acute 01/20/15) Medical History (Updated 05/06/23 @ 12:12 by Virgil Foley MD) HTN (hypertension) Family History Mother Heart disease Myocardial infarction at age 75 Father Emphysema of lung Heart disease Myocardial infarction at age 68 Brother No problems noted. Social History Smoking/Tobacco Use Status: Never Smoking risk assessment performed?: Yes Alcohol Intake: never Drug use: Never Substance use type: does not use Current gender identity: female Exam Narrative Exam Narrative: Review of Systems: All systems reviewed & are unremarkable except as noted in HPI and below: CONSTITUTIONAL: Alert and oriented Well-developed, no acute distress + Hypertensive HEENT: NCAT EYES: PERRL, no conjunctival injection EARS: no external abnormality NOSE nares patent MOUTH Moist MM NECK: Symmetric, trachea midline, No thyromegaly THROAT oropharynx clear CVS: RRR, No murmurs or gallops. Peripheral pulses 2+ and equal in all extremities Brisk capillary refill in all extremities. No peripheral edema RESP: Unlabored respiratory effort, Clear to auscultation bilaterally No wheezes rales or rhonchi GI: Soft, Nontender, Nondistended, No organomegaly MSK: Extremities with full range of motion, no deformity or TTP SKIN: Warm, Dry. No rashes or lesions. NEURO: No focal neurologic deficits. hand pattern marker II-XII grossly intact Sensation grossly intact Normal strength throughout Course Vital Signs Vital signs: Vital Signs Pulse 91 H 05/06/23 10:43 Respiratory Rate 18 05/06/23 10:43 Blood Pressure 187/85 H 05/06/23 10:43 Pulse Oximetry 100 05/06/23 10:43 Pulse 91 H 05/06/23 10:43 Respiratory Rate 18 05/06/23 10:43 Respiratory Effort Normal, Non-Labored 05/06/23 11:02 Blood Pressure 187/85 H 05/06/23 10:43 Blood Pressure Position Sitting 05/06/23 10:43 Pulse Oximetry 100 05/06/23 10:43 Oxygen Delivery Method Room Air 05/06/23 10:43 Oxygen Flow Rate 0 05/06/23 10:43
[2023-05-06 11:18] LABS: Abs Immature Grans 0.02 10^3/uL (0.0-0.06); Absolute Basophil Count 0.03 10^3/uL (0.0-0.2); Absolute Lymphocyte Count 1.24 10^3/uL (1.2-3.4); Absolute Monocyte Count 0.42 10^3/uL (0.1-0.8); Absolute Neutrophil Count 4.33 10^3/uL (1.2-6.7); Basophils % 0.5; Eosinophils % 1.6; HCT 42.3 % (36.0-46.0); HGB 14.9 g/dL (11.2-15.7); Immature Grans % 0.3; Lymphocytes % 20.2; MCHC 35.2 % (32.0-36.0); MCV 91 fL (80-95); Monocytes % 6.8; Neutrophils % 70.6; RBC 4.66 10^6/uL (3.93-5.22); WBC 6.14 10^3/uL (4.4-10.8)
[2023-05-06 11:28] LABS: ALT 24 U/L (14-59); AST 20 U/L (15-37); Albumin 4.1 g/dL (3.4-5.0); Alkaline Phosphatase 52 U/L (46-116); Anion Gap 7.9 mmol/L (3-11); BUN 9 mg/dL (7-18); Bilirubin, Total 0.5 mg/dL (0.2-1.0); CO2 31.1 mmol/L (21.0-32.0); CREATININE 0.9 mg/dL (0.55-1.02); Calcium 9.2 mg/dL (8.5-10.1); Chloride 104 mmol/L (98-107); Estimated GFR 70.95 (mL/min/1.73m2); Glucose 116 mg/dL (74-106); Potassium 3.3 mmol/L (3.5-5.1); Sodium 143 mmol/L (136-145); TSH (W/Ref FT4) 2.12 uIU/mL (0.36-3.74); Total Protein 7.7 g/dL (6.4-8.2); Troponin I < 50 ng/L (<or=60)
[2023-05-06 11:37] LABS: Diff Comment Diff Reviewed; RBC Morphology Normal
[2023-05-06] MEDS: Potassium Chloride 20 MEQ TABCR 40 MEQ PO (11:43)
== END 2023-05-06 12:38 | disposition home or self-care (01) ==
PROVIDERS: Emergency Provider Emergency Medicine; PCP Naturopath
DX: R00.2 Palpitations (principal); R06.09 Other forms of dyspnea; E87.6 Hypokalemia; I10 Essential (primary) hypertension
CPT/HCPCS: 80053; 93005; 99283; 71046; 83735; 84443; 84484; 85025; 93010

== ENCOUNTER → 2023-05-12 00:58 | Outpatient (CLI) | payer MEDICARE, SELFPAY ==
--- NOTE | 2023-05-12 | ETT_ITS ---
APPROVED REPORT Exam: Exercise Treadmill Patient Location: Out-Patient Room/Bed: Stress Nurse: Trudi Mckeon RN Ordering Provider:ARMANDO SINGH, Contact Number: [phone] BMI: 24.50 Baseline Rhythm: NSR Indications: PUENTE, Medical History Medical History: HTN Cardiac Medications: Vitamin B6, vitamin B complex, HTM Allergies: NKDA Cardiac Risk Factors: Family hx, HTN, HLD Previous Cardiac Procedures: None Pretest Chest Pain Characteristics: 2-08/13 chest pain Exercise History: Indeterminate Physical Disabilities: None Lung Sounds: Clear to auscultation Heart Sounds: Regular Stress Test Details Test: Exercise stress testing was performed using a Ernie protocol. Rest Stress HR Resting HR Supine: 73 bpm Max Heart Rate (APMHR): 155 bpm Resting HR Standin bpm Target HR (85% APMHR): 132 bpm Max HR Achieved: 143 bpm % of APMHR: 92 Recovery HR: 82 bpm HR response to stress: Normal HR response to stress BP Resting BP Supine: 122/92 mmHg Resting BP Standin/90 mmHg Max BP: 158/80 mmHg Recovery BP: 128/86 mmHg BP response to stress: Normal blood pressure response to stress. ECG Resting ECG: Sinus Rhythm Ectopy: None Stress ECG: Sinus Tachycardia ST Change: No significant ST segment changes noted Arrhythmia: None Recovery ECG: Sinus Rhythm Recovery ST Change: No significant ST segment changes noted Clinical Reason for Termination: Target HR Achieved, Fatigue, moderate SOB Stress Symptoms: Moderate SOB, General Fatigue Exercise duration: 07 min00 sec Highest Stage Reached: Stage 3: 3.4 mph at 14% grade. Exercise capacity: 8.6 METs Angina Score: Non-Limiting Garcia Treadmill Score: 6 Rate Pressure Product: [id number] Stress ECG Conclusion 1. Resting electrocardiogram was normal 2. Patient exercised on the Ernie protocol and completed a workload of 8.6 METS 3. Normal heart rate and blood pressure response to exercise. The patient achieved 92% of predicted heart rate for age 4. There was no electrocardiographic evidence of myocardial ischemia 5. No significant dysrhythmias Garcia Treadmill Score is 6 which is Low risk. Stress Test Summary STAGE Time (mins) Speed (mph) Grade (%) HR BP SpO2 SYMPTOMS METS Supine 73 122/92 97 Standing 77 139/90 1 3 1.7 10 115 158/80 4.5 2 6 2.5 12 90 142/88 98 7 3 9 3.4 14 82 128/86 98 10 4 12 4.2 16 141 13
== END ==
PROVIDERS: PCP Naturopath; Visit Provider Naturopath
DX: R06.09 Other forms of dyspnea (principal)
CPT/HCPCS: 93016; 93018; 93017

== ENCOUNTER → 2023-06-21 02:34 | Outpatient (CLI) | payer MEDICARE, SELFPAY ==
--- NOTE | 2023-06-21 13:35 | DI.US_ITS ---
APPROVED REPORT EXAM: Comprehensive 2D, Doppler, and color-flow Echocardiogram Patient Location: Out-Patient Senior Engineering Technician: Edward Marquez RDCS (AE) Indications: murmur Conclusion 1. LA upper limits, other chambers normal sizes. 2. Normal LV sysdtolic function without wall moition abnormality,EF 60-65%. Grade 1 diastolic dysfunc tion. Normal RV systolic function. 3. Anatomically normal valves. Mild AI,MR and TR without pulmonary hypertension. 4. No intracardiac shunt. 5. No pericardial effusion. Wall motion Left Ventricle The left ventricle is normal size. The left ventricular systolic function is normal. The left ventric ular ejection fraction is within the normal range. There is normal left ventricular wall thickness. T here is normal LV segmental wall motion. There is no ventricular septal defect visualized. LVEF is 54 -58%. Right Ventricle The right ventricle is normal size. The right ventricular systolic function is normal. Atria The left atrium size is normal. The right atrium size is normal. The interatrial septum is intact wit h no evidence for an atrial septal defect. Aortic Valve The aortic valve is normal in structure. Aortic valve is trileaflet. There is no aortic valvular sten osis. Mild aortic regurgitation. Mitral Valve The mitral valve is normal in structure. No evidence of mitral valve stenosis. Moderate mitral regurg itation. Tricuspid Valve The tricuspid valve is normal in structure. There is no tricuspid valve stenosis. Moderate tricuspid regurgitation. The RVSP is 33.9 mmHg. Pulmonic Valve The pulmonary valve is normal in structure. There is no pulmonic valvular stenosis. Mild to moderate pulmonic regurgitation. Great Vessels The aortic root is normal in size. The ascending aorta is mildly dilated. Aortic arch is normal in ca liber. IVC is normal in size and collapses >50% with inspiration. Pericardium There is no pericardial effusion. 2D Dimensions IVSD d PLAX 0.87 cm F: 0.6-1.0 Ao Root d 3.27 cm F: 2.7 - 3.3 LVPW d PLAX 0.86 cm F: 0.6 - 1.0 Ao Asc Diam d 3.39 cm F: 2.3 - 3.1 LVID d PLAX 4.13 cm F: 3.8 - 5.2 LVDs 2.98 cm F: 2.2 - 3.5 LV EF Teichholz 54.4 % FS 27.82 % LV EDV (Teich) 75.4 mL LV ESV (Teich) 34.4 mL Stroke Vol Index (Teich) 25.78 M-Mode TAPSE 2.74 cm (M/F) >1.7 Auto EF LV EDV A4C 93.6 mL LV EDV A2C 92.8 mL LV EDV BP 97.8 mL LV ESV A4C 43.2 mL LV ESV A2C 39.0 mL LV ESV BP 41.3 mL LVEF(%) A4C 53.8 % LVEF(%) A2C 57.9 % LVEF(%) BP 57.8 % LV SV A4C 50.4 ml LV SV A2C 53.7 ml LV SV BP 56.6 ml LV CO A4C 3.4 L/min LV CO A2C 3.3 L/min LV CO BP 3.3 L/min HR A4C 66.67 BPM HR A2C 61.65 BPM LV EDV Index (BP) LA Volume LA Length A4C 3.6 cm LA Length A2C 4.3 cm LA Area A4C s 8.25 cm2 LA Area A2C s 9.92 cm2 LA Vol A4C A-L 16.15 mL LA Vol A2C A-L 19.41 mL LA Vol Biplane A-L 19.4 mL LA Vol/BSA A4C A-L LA Vol/BSA A2C A-L LA Vol/BSA BP A-L 12.2 mL/m2 LA Vol A4C MOD 14.5 mL LA Vol A2C MOD 18.0 mL LA Vol BP MOD 17.7 mL RA Volume RA Area A4C 8.5 cm2 RA ESV A4C (A-L) 18.9mL RA Vol/BSA A4C A-L RA Length A4C 3.3 cm RA ESV A4C (MOD) 18.1mL LV Diastology MV E' medial 0.051 (>0.07 m/s) MV E Vmax 0.64 (0.4-1.3 m/s) MV E/E' MED 12.63 (<14) MV A Vmax 0.85 (0.4-1.3 m/s) MV E' lateral 0.082 (>0.1 m/s) E/A Ratio 0.8 MV E/E' LAT 7.85 (<14) MV E' Average 0.066 m/s MV E/E'(average) 9.68 Aortic Valve AoV Vmax 1.41 m/s LVOT Vmax 0.92 m/s AoV Peak Grad 49.5 mmHg LVOT Peak Grad 3.4 mmHg AoV Area (Vmax) 1.55 cm2 LVOT VTI 0.207 m AoV VTI 0.316 m LVOT Mean Grad 1.8 mmHg AoV Mean Alfa. 1.01 m/s LVOT SV 49.51 mL AoV Mean Grad 4.5 mmHg LVOT Diam s 1.70 cm AoV Area (VTI) 1.57 cm2 AV Regurg Peak Gr. 91.00 mmHg Velocity Ratio 0.65 AR Decel [place] 2.3m/sec2 AR DT 2069 msec AR PHT 600 msec AR Vmax 4.77 m/s Mitral Valve MV DT 233 (160-240 msec) MR Vmax 6.12 m/s MV Vmax TIPS 0.82 m/s MR VTI 2.214 m MV Mean Grad 1.0 (<2mmHg) MR Peak Grad 150.0 mmHg MV VTI 0.268 m MR Mean Grad 101.0 mmHg MR PISA Radius 0.45 cm MR Aliasing Velocity 0.30 m/s Pulmonary Valve PV Vmax 1.01 (0.5-1.5 m/s) RVOT Vmax 0.51 m/s PV Peak Grad 4.1 mmHg RVOT Peak Gr. 1.1 mmHg PV Mean Alfa 0.69 m/s RVOT VTI 0.127 m PV Mean Grad 2.2 mmHg RVOT Mean Gr. 0.5 mmHg Tricuspid Valve RA Pressure 3.00 mmHg TR Vmax 2.78 m/s TR Peak Grad 30.8 mmHg RVSP (TR) 33.9 mmHg
== END ==
PROVIDERS: PCP Naturopath; Visit Provider Naturopath
DX: R01.1 Cardiac murmur, unspecified (principal)
CPT/HCPCS: 93306

== ENCOUNTER 2023-08-09 03:48 | Outpatient (CLI) | payer MEDICARE, SELFPAY ==
[2023-08-09 10:21] LABS: ALT 20 U/L (14-59); AST 15 U/L (15-37); Albumin 4.3 g/dL (3.4-5.0); Alkaline Phosphatase 54 U/L (46-116); Anion Gap 9.6 mmol/L (3-11); BUN 9 mg/dL (7-18); Bilirubin, Total 0.6 mg/dL (0.2-1.0); CO2 30.4 mmol/L (21.0-32.0); CREATININE 0.8 mg/dL (0.55-1.02); Calcium 9.5 mg/dL (8.5-10.1); Calculated LDL 135 mg/dL (<100); Chloride 105 mmol/L (98-107); Cholesterol 216 mg/dL (<200); Estimated GFR 81.72 (mL/min/1.73m2); Glucose 91 mg/dL (74-106); HDL Cholesterol 66 mg/dL (40-60); Potassium 3.7 mmol/L (3.5-5.1); Sodium 145 mmol/L (136-145); TSH 1.43 uIU/Ml (0.36-3.74); Total Protein 7.4 g/dL (6.4-8.2); Triglyceride 78 mg/dL (<150)
[2023-08-09 18:49] LABS: T3,Free 3.7 pg/mL (2.8-5.3)
[2023-08-12 14:44] LABS: Apolipoprotein A1, S 165 mg/dL (>=140); Apolipoprotein B, S 100 mg/dL (See Comment); Apolipoprotein B/A 1 ratio 0.6 (See Comment)
== END 2023-08-09 03:49 | disposition home or self-care (01) ==
LOC: LBO 03:52
PROVIDERS: PCP Naturopath; Visit Provider Naturopath
DX: R00.2 Palpitations (principal)
CPT/HCPCS: 36415; 80053; 80061; 82172; 83735; 84439; 84443; 84481

== ENCOUNTER 2024-03-10 23:22 | Emergency (ER) | payer MEDICARE, SELFPAY ==
[2024-03-10] VITALS (35 sets, daily range): BP systolic 182–193; BP diastolic 93–108; PULSE 72–75; RESP 12–29; TEMP 36.3; O2SAT 96–100
--- NOTE | 2024-03-10 23:15 | RT.EKG_ITS ---
APPROVED REPORT Exam: Resting ECG Reason for Exam: chest discomfort Patient Location: E HR:71 bpm ECG Measurements Heart Rate 71 AXIS NE 140 P 26 QRSd 96 QRS 3 QT 448 T 81 QTc 489 Conclusion Sinus rhythm...normal P axis, V-rate 60- 99 Nonspecific T abnrm, anterolateral leads...T <-0.10mV, I aVL V2-V6 Physician: no stemi
[2024-03-10] MEDS: Aspirin 81 MG CHEW 324 MG CH (23:44)
--- NOTE | 2024-03-10 23:46 | W.ED.GENAD ---
Discharge Plan Disposition Patient Disposition: Home Condition: Good Discharge Details Clinical Impression: Chest discomfort Primary Care Provider: Araceli Ca ED Provider: Matheus Pettit Home Meds and New Rx's Prescriptions: No Action ibuprofen 200 MG capsule 200 mg PO DAILY PRN PRN Vitamin C 100 MG tablet 500 mg PO BID Patient Comments: 01/20/15- reports takes 500mg BID. NC vitamin B complex 1 EACH capsule 1 ea PO DAILY Fish Oil 500 MG capsule 1,000 mg PO BID Patient Comments: 01/20/15- states she is taking 1000mg/ BID Super Misael-Mag 1 EACH tablet 1 ea PO BID Glucosamine-Chondroitin Complx 1 EACH tablet 1,500 mg PO BID Patient Comments: 01/20/15-reports she takes 1,500mg BID. NC vitamin E 400 UNIT capsule 400 unit PO DAILY htm 180px tablet See Rx Instructions PO BID Patient Comments: states taking instead of carditone per herbalist Rx Instructions: Pt unsure of dose, states extra strength orally twice a day; Discharge Instructions Instructions: Chest pain Additional Instructions: At this time as we discussed together your workup is returned very reassuring. There is no signs of blood clot, heart attack, or other significant acute abnormalities. I do suspect that there may have been a component of reflux from the tomato-based dinner that you had tonight. Please take Tums frequently as needed. Please avoid significant tomato-based products or spicy foods. As we discussed, please try to cut down on caffeine use as this may positively impact your palpitations. If you notice any worsening of your symptoms, or any new symptoms such as vomiting, diarrhea, fever, chills, shortness of breath, chest pain, numbness, weakness, or fainting , please return immediately to the emergency department for reevaluation. Please follow up with your primary care provider as soon as possible for reassessment and reevaluation. As always, it was a pleasure participating in your medical care today. Referrals: Araceli Ca [Primary Care Provider] - HPI General Date/Time Provider Initiated Documentation: 03/10/24 23:37. HPI Narrative: This is a pleasant 68-year-old female with a past medical history of palpitations, hypertension, arthritis, who presents today for evaluation of chest pain. Patient states that she has been undergoing a significant amount of stress over the last week. She has an upcoming wedding to plan for, trips, travel, and social challenges that did occur at home. She states that for the last week she has been having an increase in her palpitations. She denied any chest pain during those episodes though. However today at around 1030pm she developed chest pain when she woke up to go to the bathroom. She describes it as an achy heaviness in her chest. It does not radiate to the arms neck or shoulder. It did not change with activity or exertion. She denies any tearing or ripping sensation. She denies any numbness tingling or weakness. She denies any significant change in medications or diet. She denies any burning sensation. No recent long trips surgeries or procedures. No personal history of heart attack or stroke. She does not smoke. She did receive some secondhand smoke as a child though. No other complaints at this time. No other modifying factors. Related Data Home Medications ?Medication ?Instructions ?Recorded ?Confirmed ascorbic acid (vitamin C) 100 mg 500 mg PO BID 01/03/15 03/10/24 tablet (Vitamin C) calcium carbonate-magnesium oxide 1 ea PO BID 01/03/15 03/10/24 333 mg-167 mg tablet (Super Misael-Mag) glucosamine 750 [id number]-[id number] 1 1,500 mg PO BID 01/03/15 03/10/24 625 mg-D3 1,000 [id number] tablet (Glucosamine-Chondroitin Complex) ibuprofen 200 mg capsule 200 mg PO DAILY PRN PRN 01/03/15 03/10/24 omega-3 fatty acids 500 mg capsule 1,000 mg PO BID 01/03/15 03/10/24 (Fish Oil) vitamin B complex 1 ea PO DAILY 01/03/15 03/10/24 vitamin E 268 mg (400 unit) capsule 400 unit PO DAILY 08/05/15 03/10/24 htm 180px See Rx Instructions PO BID 05/06/23 03/10/24 Allergies Allergy/AdvReac Type Severity Reaction Status Date / Time No Known Allergies Allergy Verified 03/10/24 23:38 General Stated Complaint: Chest Pain KRISTOFER: 3 Review of Systems All systems reviewed & are unremarkable except as noted in HPI and below Exam Narrative Exam Narrative: 1.Const: Well-nourished, Well-developed, appearing stated age 2.Eyes: PERRL, no conjunctival injection, and symmetrical lids. 3.ENT: Atraumatic external nose and ears. Moist MM. Neck: Symmetric, trachea midline, No thyromegaly. 4.CVS: +S1/S2, No murmurs or gallops. Peripheral pulses 2+ and equal in all extremities. Brisk capillary refill in all extremities. 5.RESP: Unlabored respiratory effort. Clear to auscultation bilaterally. No wheezes rales or rhonchi 6.GI: Soft, Nontender/Nondistended, No hepatosplenomegaly. No guarding or rebound. 7.MSK: Normocephalic/Atraumatic, Extremities w/o deformity or ttp No cyanosis or clubbing, Normal movement of all extremities 8.Skin: Warm, Dry. No rashes or lesions. 9.Neuro: training and development officer II-XII grossly intact. Sensation grossly intact, no focal neurologic deficits. 10.Psych: (AAO) x3. Appropriate mood and affect Course Vital Signs Vital signs: Vital Signs Temperature 36.3 C L 03/10/24 23:25 Pulse 73 03/10/24 23:25 Respiratory Rate 22 03/10/24 23:25 Blood Pressure 193/108 H 03/10/24 23:25 Pulse Oximetry 99 03/10/24 23:25 Temperature 36.3 C L 03/10/24 23:25 Pulse 73 03/10/24 23:25 Respiratory Rate 22 03/10/24 23:32 Respiratory Effort Normal 03/10/24 23:32 Blood Pressure 193/108 H 03/10/24 23:25 Blood Pressure Position Supine 03/10/24 23:25 Pulse Oximetry 99 03/10/24 23:25 Pain Level 5 03/10/24 23:25 Medical Decision Making This is a pleasant 68-year-old female with a past medical history of palpitations, hypertension, arthritis, who presents today for evaluation of chest pain. Patient states that she has been undergoing a significant amount of stress over the last week. She has an upcoming wedding to plan for, trips, travel, and social challenges that did occur at home. She states that for the last week she has been having an increase in her palpitations. She denied any chest pain during those episodes though. However today at around 1030pm she developed chest pain when she woke up to go to the bathroom. She describes it as an achy heaviness in her chest. It does not radiate to the arms neck or shoulder. It did not change with activity or exertion. She denies any tearing or ripping sensation. She denies any numbness tingling or weakness. She denies any significant change in medications or diet. She denies any burning sensation. No recent long trips surgeries or procedures. No personal history of heart attack or stroke. She does not smoke. She did receive some secondhand smoke as a child though. No other complaints at this time. No other modifying factors. Exam demonstrates well-appearing female, normal lung sounds, no reproducible chest discomfort or rash. No signs of significant vital sign abnormality aside for moderate hypertension. EKG shows no evidence of STEMI. Differential is broad but includes PE, less likely ACS. Stress or anxiety is certainly on the differential but is a diagnosis of exclusion. Symptoms appear clinically inconsistent with dissection, no tearing or ripping sensation. Normal radial pulses bilaterally. Pneumonia tumor or pneumothorax are less likely but on the differential. Will evaluate for these concerning etiologies, will give full dose aspirin, monitor closely and reassess. 3:39 AM Laboratory workup shows no white count bandemia or left shift. D-dimer elevated at 601. Initial study which perform D-dimer rule out for age adjustment was in 10 point intervals, and so age would not be appropriate for rule out in this scenario and less the D-dimer was under 600. CTA was performed, and shows no evidence of PE dissection or other significant abnormality. Chronic gallstones are present, but she has no elevation in bilirubin or alk phos to suggest cholecystitis or choledocholithiasis. No right upper quadrant pain or tenderness. Patient has remained hemodynamically stable. She feels well, pain significantly improved. Pain is now described as more of a burning sensation in the epigastric region. Lipase normal. However family does admit that they had spaghetti tonight, which certainly may have brought about some of the symptoms of potential GERD reflux or esophageal spasm. With all high-sensitivity troponins being normal, she has been ruled out for evidence of ACS. EKG shows no evidence of STEMI. No other evidence of life-threatening etiology of dissection PE or other abnormality. No significant dysrhythmia while monitored here. Patient otherwise stable. Patient stable for discharge. Will recommend avoidance of caffeine to help reduce potential mild PVCs that she is having. She currently has 1 cup of coffee per morning. Recommend avoidance of tomato-based products or spicy products or citrus products at home to cut down on potential reflux. Recommend taking Tums and continuing to use her kateryna during episodes. Recommend close follow-up with PCP. Discussed red flags for which to return. I have extensively reviewed the treatment plan and discharge instructions with the patient and their family. I have addressed all patient concerns at this time. The patient and family was made aware of what symptoms to monitor for that would warrant a return to the emergency department. Discussed the plan with the patient and family, they demonstrate verbal understanding and agreement with our assessment and plan at this time. The documentation in this chart was dictated using [employer] dictation software. Please excuse any dictation errors. FINDINGS: Pulmonary arteries: The pulmonary arteries are normal in caliber. No evidence of acute pulmonary embolism. Aorta: The aorta is normal without evidence of aneurysmal dilatation, dissection or occlusive disease. Lungs: Minimal atelectatic changes and scarring at the lung bases bilaterally. There is no evidence of focal pulmonary consolidation. No evidence of pulmonary parenchymal inflammatory changes. There is no evidence of pulmonary masses. Pleural spaces: There is no evidence of pneumothorax. There are no pleural effusions present. Heart: No evidence of reflux of contrast into the inferior vena cava or hepatic veins to suggest right heart strain or pulmonary hypertension. There is mild left ventricular hypertrophy. The cardiac structures are otherwise normal. The right ventricular to left ventricular ratio is normal measuring approximately 1.0. Coronary arteries: There is mild atherosclerotic calcification of the coronary arteries. Lymph nodes: There is no evidence of lymphadenopathy Gallbladder and biliary ducts: Cholelithiasis present with stones present at the neck of the gallbladder and cystic duct. Bones/joints: Mild degenerative changes thoracic spine present. The spine, sternum, ribs, and pectoral girdles show no evidence of acute abnormality. Soft tissues: There are no soft tissue masses or fluid collections. The upper abdominal viscera are otherwise unremarkable. Other findings: The mediastinal structures are normal. IMPRESSION: 1. No evidence of acute pulmonary embolism. 2. There is mild left ventricular hypertrophy. 3. Cholelithiasis present with stones present at the neck of the gallbladder and cystic duct. Consider ultrasound if clinically warranted. 4. Mild atherosclerotic coronary artery disease. 5. No evidence of aortic dissection. Thank you for allowing us to participate in the care of your patient. Dictated and Authenticated by: Dex George MD Quality:SDOH Health Related Social Needs: No Data to Display PFSH All Active Problems (Updated 03/11/24 @ 03:27 by Matheus Pettit DO) Chest discomfort (Acute) Palpitations (Acute) Closed fracture of proximal end of right humerus (Acute) Osteoarthritis (Acute 01/20/15) Hearing loss of both ears (Acute 01/20/15) HTN (hypertension) (Acute 01/20/15) Medical History (Updated 03/11/24 @ 03:27 by Matheus Pettit DO) HTN (hypertension) Family History Mother Heart disease Myocardial infarction at age 75 Father Emphysema of lung Heart disease Myocardial infarction at age 68 Brother No problems noted. Social History Smoking/Tobacco Use Status: Never Smoking risk assessment performed?: Yes Alcohol Intake: never Drug use: Never Substance use type: does not use Current gender identity: female
[2024-03-10 23:54] LABS: Abs Immature Grans 0.01 10^3/uL (0.0-0.06); Absolute Basophil Count 0.02 10^3/uL (0.0-0.2); Absolute Eosinophil Count 0.22 10^3/uL (0.0-0.7); Absolute Monocyte Count 0.49 10^3/uL (0.1-0.8); Absolute Neutrophil Count 3.05 10^3/uL (1.2-6.7); Basophils % 0.4 %; Eosinophils % 3.9 %; HGB 13.9 g/dL (11.2-15.7); Immature Grans % 0.2 %; Lymphocytes % 32.2 %; MCHC 33.1 % (32.0-36.0); MCV 94 fL (80-95); MPV 9.1 fL (8.0-11.0); Monocytes % 8.8 %; Neutrophils % 54.5 %; Platelet Count 201 10^3/uL (130-400); RBC 4.48 10^6/uL (3.93-5.22); RDW 11.8 % (11.7-14.6); RDW-SD 40.3 fL; WBC 5.59 10^3/uL (4.4-10.8)
[2024-03-11] VITALS (40 sets, daily range): BP systolic 141–162; BP diastolic 81–119; PULSE 60–83; RESP 10–29; O2SAT 96–99
[2024-03-11 00:12] LABS: Magnesium 2.2 mg/dL (1.8-2.4)
[2024-03-11 00:26] LABS: ALT 38 U/L (14-59); AST 74 U/L (15-37); Albumin 3.7 g/dL (3.4-5.0); Alkaline Phosphatase 58 U/L (46-116); BUN 11 mg/dL (7-18); Bilirubin, Total 0.62 mg/dL (0.2-1.0); CO2 31.4 mmol/L (21.0-32.0); CREATININE 0.8 mg/dL (0.55-1.02); Estimated GFR 81.21 (mL/min/1.73m2); Glucose 106 mg/dL (74-106); Lipase 47 U/L (16-77); TSH (W/Ref FT4) 4.72 uIU/mL (0.36-3.74); Total Protein 7.3 g/dL (6.4-8.2); Troponin I 6 ng/L (<or=51)
[2024-03-11 00:26] LABS: PTT Activated 20.1 sec (23.6-32.8); Prothrombin Time 10.4 sec (9.1-11.1)
[2024-03-11 00:32] LABS: Anion Gap 4.6 mmol/L (3-11); Calcium 9.7 mg/dL (8.5-10.1); Chloride 105 mmol/L (98-107); Potassium 3.9 mmol/L (3.5-5.1); Sodium 141 mmol/L (136-145)
[2024-03-11 00:47] LABS: FREE T4 0.97 ng/dL (0.76-1.46)
[2024-03-11 00:55] LABS: D-Dimer 601 ng/mlFEU (<500)
[2024-03-11 01:02] LABS: Troponin I 7 ng/L (<or=51)
[2024-03-11] MEDS: Normal Saline - Diluent 50 ML VIAL IJ (01:29)
[2024-03-11] MEDS: Omnipaque 350 MG/ML 100 ML BTL 65 ML IJ (01:29)
--- NOTE | 2024-03-11 01:30 | DI.CT_ITS ---
Exam(s) CT CHEST PE CTA EXAM: CT CHEST PE CTA CLINICAL HISTORY: chest pain, eval for PE/Dissection. TECHNIQUE: Imaging Protocol: Axial CT angiography was performed with multi-slice acquisition and mu lti-planar reconstructions as well as axial, coronal and sagittal MIP reconstructions. CONTRAST MATERIAL: Intravenous: Omnipaque 350 Contrast volume:100 ml COMPARISON: CT CHEST FOR PULMONARY EMBOLUS from 07/18/2015 US US ABDOMEN from 03/04/2021 FINDINGS: Pulmonary Arteries: No evidence of filling defect to suggest pulmonary emboli. Mediastinum and [place]: No dominant adenopathy or fluid collection. Pulmonary parenchyma: No consolidation or dominant measurable mass. Pleura: No effusion or pneumothorax. Heart: The heart is mildly dilated. Mild coronary artery calcifications are seen. Aorta: Thoracic aorta non-dilated. No dissection. Upper abdomen: No acute findings. Cholelithiasis. Bones: Unremarkable for age. Tubes, Catheters, and Lines: None Soft tissues: Unremarkable. IMPRESSION: No evidence of pulmonary embolism or aortic dissection. Cholelithiasis again noted. RADIATION DOSE DELIVERED: Total DLP DATA REPOSITORY: All CT scans at this facility are submitted to the National Radiology Data Registry (NRDR) Dose Index Registry (DIR) with the [employer] (ACR). RADIATION OPTIMIZATION: All CT scans at this facility use at least one of these dose optimization te chniques: automated exposure control; mA and/or kV adjustment per patient size (includes targeted exa ms where dose is matched to clinical indication); or iterative reconstruction.
--- NOTE | 2024-03-11 01:48 | DI.VRAD_ITS ---
PROCEDURE INFORMATION: Exam: CTA Chest With Contrast Exam date and time: 03/11/2024 1:21 AM Age: 68 years old Clinical indication: Other: Chest pain, eval for pe/dissection TECHNIQUE: Imaging protocol: Computed tomographic angiography of the chest with contrast. Exam focused on the arteries. 3D rendering (Not supervised by radiologist): MIP and/or 3D reconstructed images were created by the technologist. Contrast material: OMNIPAQUE 350; Contrast volume: 65 ml; Contrast route: INTRAVENOUS (IV); COMPARISON: CR XR CHEST 2V PA LATERAL 05/06/2023 11:11 AM FINDINGS: Pulmonary arteries: The pulmonary arteries are normal in caliber. No evidence of acute pulmonary embolism. Aorta: The aorta is normal without evidence of aneurysmal dilatation, dissection or occlusive disease. Lungs: Minimal atelectatic changes and scarring at the lung bases bilaterally. There is no evidence of focal pulmonary consolidation. No evidence of pulmonary parenchymal inflammatory changes. There is no evidence of pulmonary masses. Pleural spaces: There is no evidence of pneumothorax. There are no pleural effusions present. Heart: No evidence of reflux of contrast into the inferior vena cava or hepatic veins to suggest right heart strain or pulmonary hypertension. There is mild left ventricular hypertrophy. The cardiac structures are otherwise normal. The right ventricular to left ventricular ratio is normal measuring approximately 1.0. Coronary arteries: There is mild atherosclerotic calcification of the coronary arteries. Lymph nodes: There is no evidence of lymphadenopathy. Gallbladder and biliary ducts: Cholelithiasis present with stones present at the neck of the gallbladder and cystic duct. Bones/joints: Mild degenerative changes thoracic spine present. The spine, sternum, ribs, and pectoral girdles show no evidence of acute abnormality. Soft tissues: There are no soft tissue masses or fluid collections. The upper abdominal viscera are otherwise unremarkable. Other findings: The mediastinal structures are normal. IMPRESSION: 1. No evidence of acute pulmonary embolism. 2. There is mild left ventricular hypertrophy. 3. Cholelithiasis present with stones present at the neck of the gallbladder and cystic duct. Consider ultrasound if clinically warranted. 4. Mild atherosclerotic coronary artery disease. 5. No evidence of aortic except dissection. Dictated and Authenticated by: Dex George MD. Ordering:HARESH Jarvis MD
[2024-03-11 03:01] LABS: Troponin I 8 ng/L (<or=51)
== END 2024-03-11 03:35 | disposition home or self-care (01) ==
PROVIDERS: Emergency Provider Student in an Organized Health Care Education/Training Program; PCP Naturopath
DX: R07.89 Other chest pain (principal); R00.2 Palpitations; I10 Essential (primary) hypertension
CPT/HCPCS: 71275; 80053; 83690; 93005; 99285; 83735; 84439; 84443; 84484; 85025; 85379; 85610; 85730; 93010; 99284; J3490